=== PATIENT | male | born 1970 | race Hispanic/Latino ===

== ENCOUNTER 2019-01-09 23:27 | Emergency (ER) | payer BC ==
[2019-01-10 00:46] LABS: Bilirubin Negative (Negative); Blood, Urine Small (Negative); Clarity Clear (Clear); Glucose, Urine (Dipstick) 100 mg/dL (Negative); Leukocyte Negative (Negative); Nitrite Negative (Negative); Protein, Urine (Dipstick) > or equal to 300 mg/dL (Neg-Trace); Urobilinogen 0.2 mg/dL (Less than 2)
[2019-01-10 00:47] LABS: ALT (SGPT) 28 U/L (8-55); AST (SGOT) 19 U/L (5-34); Albumin 4.4 g/dL (3.5-5.0); Alkaline Phosphatase 83 U/L (40-110); Anion Gap 19 mmol/L (10-20); BUN (Urea Nitrogen) 22 mg/dL (8.9-20.6); Bilirubin, Total 1.2 mg/dL (0.2-1.2); Calc. Creatinine Clearance 0 mL/min (70-130); Calcium 8.7 mg/dL (7.8-10.44); Carbon Dioxide 30 mmol/L (22-29); Chloride 96 mmol/L (98-107); Estimated GFR-MDRD 7; Globulin 2.8 g/dL (2.4-3.5); Glucose 102 mg/dL (70-105); Lipase 28 U/L (8-78); Potassium 4.7 mmol/L (3.5-5.1); Protein, Total 7.2 g/dL (6.0-8.3); Sodium 140 mmol/L (136-145)
[2019-01-10 00:55] LABS: #Basophils 0.1 thou/uL (0.0-0.2); #Eosinphils 0.2 thou/uL (0.0-0.7); #Monocytes 0.3 thou/uL (0.11-0.59); #Neutrophils 5.2 thou/uL (1.40-6.50); %Basophils 0.8 % (0.0-1.0); %Eosinophils 3.7 % (0.0-10.0); %Lymphocytes 14.5 % (21.0-51.0); %Monocytes 4.1 % (0.0-10.0); %Neutrophils 76.9 % (42.0-75.0); Hemoglobin 12.7 g/dL (14.0-18.0); Mean Corpuscular HGB CONC 33.8 g/dL (32.0-36.0); Mean Corpuscular Hemoglobin 33.7 pg (27.0-31.0); Mean Corpuscular Volume 99.6 fL (78.0-98.0); Mean Platelet Volume 10.2 fL (7.4-10.4); Platelet Count 112 thou/uL (130-400); RBC Distribution Width 11.9 % (11.5-14.5); Red Blood Cell (RBC) Count 3.78 mill/uL (4.70-6.10); White Blood Cell (WBC) Count 6.7 thou/uL (4.8-10.8)
[2019-01-10 00:56] LABS: Platelet Morphology Comment NO PLT CLUMPS
[2019-01-10 00:58] LABS: MDiff Complete? YES
[2019-01-10 01:05] LABS: Bacteria/HPF None Seen HPF (None Seen); WBC/HPF 0-3 HPF (0-3)
[2019-01-10] MEDS ORDERED: niCARdipine 25 MG/10 ML VIAL ONE (01:32)
[2019-01-10] MEDS ORDERED: Ondansetron ODT 4 MG TAB ONE (02:01)
--- NOTE | 2019-01-10 08:26 | CT ---
PRELIMINARY REPORT/[facility]/EMERGENCY AFTER HOURS PROCEDURE PROCEDURE INFORMATION: Exam: CT Head Without Contrast Exam date and time: 01/10/2019 2:08 AM Age: 48 years old Clinical history: Altered mental status/memory loss and visual disturbance TECHNIQUE: Imaging protocol: Computed tomography of the head without contrast. COMPARISON: No relevant prior studies available. FINDINGS: Brain: No hemorrhage. No significant white matter disease. No edema. Ventricles: No ventriculomegaly. Bones/joints: Unremarkable. No acute fracture. Sinuses: Visualized sinuses are unremarkable. No fluid levels. Mastoid air cells: Visualized mastoid air cells are well aerated. Soft tissues: Unremarkable. IMPRESSION: No acute intracranial abnormality. Thank you for allowing us to participate in the care of your patient. Dictated and Authenticated by: Molly Smith MD 01/10/2019 2:26 AM Central Time ([place] & [place]) FINAL REPORT CT HEAD WITHOUT CONTRAST: 01/10/2019 HISTORY: Vision changes. COMPARISON: None. FINDINGS: I agree with the preliminary report. The imaged paranasal sinuses and mastoid air cells are well aera carolyne. No displaced calvarial fracture. No intracranial hemorrhage, midline shift or mass effect. IMPRESSION: No acute findings. CODE QA POS: [facility]
--- NOTE | 2019-01-10 09:12 | RAD ---
PORTABLE UPRIGHT FRONTAL RADIOGRAPH CHEST: 01/10/2019 HISTORY: Cough. COMPARISON: None. FINDINGS: There is mild pulmonary vascular congestion and mild perihilar increased linear interstitial density. The cardiac silhouette is mildly prominent. No pneumothorax or large volume pleural effusion. IMPRESSION: Prominent cardiac silhouette with pulmonary vascular congestion and perihilar interstitial prominence may signify interstitial edema in the proper clinical setting. Recommend PA and lateral imaging of the chest for better assessment. POS: [facility]
== END 2019-01-10 02:30 | disposition short-term general hospital (02) ==
LOC: MADERS 23:27
DX: I12.0 Hypertensive chronic kidney disease with stage 5 chronic kidney disease or end stage renal disease (principal); N18.6 End stage renal disease; Z99.2 Dependence on renal dialysis; Z79.899 Other long term (current) drug therapy
CPT/HCPCS: 70450; 71045; 80053; 81003; 81015; 83605; 83690; 85025; 93005; 96365; J7050; Q0162